=== PATIENT | male | born 1965 | race Caucasian/White ===

== ENCOUNTER 2018-05-21 11:02 | Emergency (ER) | payer MEDICAID ==
[~2018-05-21] VITALS: Ht 157.5 cm; Wt 65.9 kg
[2018-05-21] MEDS ORDERED: DIPH,PERTUSS(ACELL),TET VAC/PF 0.5 ML IM-VACC ONE ×2 (11:46→12:00)
[2018-05-21] MEDS ORDERED: L.E.T SOLUTION TP ONE (12:00)
[2018-05-21] MEDS ORDERED: BACITRACIN ZINC OINT 500U/GM, 0.9 GM ONE (12:29)
[2018-05-21] MEDS ORDERED: ACETAMINOPHEN 325 MG TABLET PO ONE (13:30)
[2018-05-21] MEDS ORDERED: ACETAMINOPHEN 325 MG TABLET ONE (13:45)
[2018-05-21 13:51] VITALS: BP 110/65
== END 2018-05-21 13:53 | disposition home or self-care (01) ==
LOC: EDBD 11:02 → ED 13:48
DX: S01.01XA Laceration without foreign body of scalp, initial encounter (principal); W19.XXXA Unspecified fall, initial encounter; Y93.89 Activity, other specified; Y92.89 Other specified places as the place of occurrence of the external cause; Y99.8 Other external cause status
CPT/HCPCS: 12002; 90471; 90715; 99283

== ENCOUNTER 2018-05-31 16:23 | Emergency (ER) | payer MEDICAID ==
[2018-05-31 16:29] VITALS: BP 124/86
== END 2018-05-31 16:55 | disposition home or self-care (01) ==
LOC: ED 16:49
DX: S01.01XD Laceration without foreign body of scalp, subsequent encounter (principal); X58.XXXD Exposure to other specified factors, subsequent encounter
CPT/HCPCS: 99283